=== PATIENT | female | born 1960 | race Caucasian/White ===

== ENCOUNTER → 2018-11-06 | Outpatient (CLI) | payer OTHER ==
[~2018-11-06] MED LIST: CENTRUM SILVER1 EAC4; CRESTOR20 MG; DIUREX WATER P1 EACH; LEXAPRO20 MG; MOBIC15 MG; VITAMIN B-12500 MCG
== END ==
LOC: M.MRI 10-08 10:46
DX: M47.817 Spondylosis without myelopathy or radiculopathy, lumbosacral region (principal); M48.062 Spinal stenosis, lumbar region with neurogenic claudication; N28.1 Cyst of kidney, acquired; G89.29 Other chronic pain

== ENCOUNTER → 2018-11-13 | Outpatient (CLI) | payer OTHER ==
[~2018-11-13] MED LIST changes: +CELEXA20 MG PO; +FLEXERIL PO
== END ==
LOC: M.PC 09:20
DX: M47.816 Spondylosis without myelopathy or radiculopathy, lumbar region (principal); M51.36 Other intervertebral disc degeneration, lumbar region; M48.061 Spinal stenosis, lumbar region without neurogenic claudication; E78.5 Hyperlipidemia, unspecified; F17.210 Nicotine dependence, cigarettes, uncomplicated; F32.9 Major depressive disorder, single episode, unspecified; F41.9 Anxiety disorder, unspecified; Z90.710 Acquired absence of both cervix and uterus; Z88.1 Allergy status to other antibiotic agents

== ENCOUNTER → 2018-11-25 | Outpatient (CLI) | payer OTHER | END | disposition home or self-care (01) | LOC: M.PC 04:50 | DX: M51.36 Other intervertebral disc degeneration, lumbar region (principal); M47.816 Spondylosis without myelopathy or radiculopathy, lumbar region; M48.061 Spinal stenosis, lumbar region without neurogenic claudication; E78.5 Hyperlipidemia, unspecified; F32.9 Major depressive disorder, single episode, unspecified; F41.9 Anxiety disorder, unspecified; F17.210 Nicotine dependence, cigarettes, uncomplicated; Z98.890 Other specified postprocedural states; Z79.899 Other long term (current) drug therapy; Z87.442 Personal history of urinary calculi; Z88.8 Allergy status to other drugs, medicaments and biological substances ==

== ENCOUNTER → 2018-12-04 | Outpatient (CLI) | payer OTHER | END | disposition home or self-care (01) | LOC: M.PC 05:20 | DX: M47.816 Spondylosis without myelopathy or radiculopathy, lumbar region (principal); M51.36 Other intervertebral disc degeneration, lumbar region; E78.5 Hyperlipidemia, unspecified; F32.9 Major depressive disorder, single episode, unspecified; F41.9 Anxiety disorder, unspecified; F17.210 Nicotine dependence, cigarettes, uncomplicated; Z88.8 Allergy status to other drugs, medicaments and biological substances; Z79.899 Other long term (current) drug therapy; Z90.710 Acquired absence of both cervix and uterus; Z87.442 Personal history of urinary calculi; Z98.890 Other specified postprocedural states ==

== ENCOUNTER → 2019-02-12 | Outpatient (CLI) | payer OTHER | LOC: M.PC 04:52 | DX: M51.36 Other intervertebral disc degeneration, lumbar region (principal); M47.816 Spondylosis without myelopathy or radiculopathy, lumbar region; M48.061 Spinal stenosis, lumbar region without neurogenic claudication; E78.5 Hyperlipidemia, unspecified; F32.9 Major depressive disorder, single episode, unspecified; F41.9 Anxiety disorder, unspecified; F17.210 Nicotine dependence, cigarettes, uncomplicated; Z72.89 Other problems related to lifestyle ==

== ENCOUNTER 2020-04-23 09:36 | Emergency (ER) | payer OTHER ==
[~2020-04-23] VITALS: Ht 160 cm; Wt 111.1 kg
[2020-04-23] MEDS ORDERED: HYDROCODONE-IB1 EACH PO (11:11)
[2020-04-23] MEDS ORDERED: FLEXERIL PO (11:14)
[2020-04-23 11:21] VITALS: BP 141/64
--- NOTE | 2020-04-23 18:09 | EKG ---
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: : [id number] Requested By: Michele Calvo Order Number: [id number] MD: Joe Gresham Measurements Intervals [place] Rate: 88 P: 16 ND: 141 QRS: -28 QRSD: 94 T: 25 QT: 378 QTc: 458 Interpretive Statements Sinus rhythm Probable left atrial enlargement Borderline left axis deviation Abnormal R-wave progression, late transition No previous ECG available for comparison Electronically Signed On 04-23-2020 18:09:46 ARCHIVES DIRECTOR by Joe Gresham [email or web address] <ELECTRONICALLY SIGNED> By: Joe Gresham MD, FAC 04/23/20 1809 1023 1023 Joe Gresham MD, [facility] /EPI
== END 2020-04-23 11:23 | disposition home or self-care (01) ==
LOC: M.ERS 09:36
DX: M75.32 Calcific tendinitis of left shoulder (principal); Z88.6 Allergy status to analgesic agent; Z90.710 Acquired absence of both cervix and uterus